=== PATIENT | female | born 1935 | race Caucasian/White ===

== ENCOUNTER → 2022-05-15 | Outpatient (CLI) | payer SELFPAY | END | disposition home or self-care (01) | LOC: LAB SHORT 16:07 | DX: N39.0 Urinary tract infection, site not specified (principal) | CPT/HCPCS: 87077; 87086; 87186 ==

== ENCOUNTER → 2022-09-14 | Outpatient (CLI) | payer OTHER | LOC: LAB 13:50 → LAB SHORT 13:50 | DX: R30.0 Dysuria (principal) | CPT/HCPCS: 87077; 87086; 87186 ==

== ENCOUNTER 2023-01-05 10:10 | Day surgery (SDC) | payer OTHER ==
[~2023-01-05] VITALS: Ht 157.5 cm; Wt 60.5 kg
[2023-01-05] MEDS ORDERED: ELIQUIS2.5 M1 (11:15)
[2023-01-05] MEDS ORDERED: LOSARTAN POTASS25 M2 PO (11:15)
[2023-01-05] MEDS ORDERED: SYNTHROID50 MC1 PO (11:16)
[2023-01-05] MEDS ORDERED: LATANOPROST2.5 M3 (11:16)
[2023-01-05] MEDS ORDERED: METO50ER PO (11:17)
[2023-01-05] MEDS ORDERED: OMEP20ER PO (11:18)
[2023-01-05] MEDS ORDERED: ALLEGRA ALLERG180 MG PO (11:18)
[2023-01-05] MEDS ORDERED: CALCIUM 500 MG1 EAC2 PO (11:19)
--- NOTE | 2023-01-05 11:33 | NUR ---
01/05/23 1133 Perla Tran IN AT 1116 ANTONIO IN AT 1117 CALL LIGHT AT BEDSIDE
[2023-01-05 12:50] VITALS: BP 153/55
--- NOTE | 2023-01-05 12:53 | NUR ---
01/05/23 1253 Krista Snyder IV REMOVED, CANNULA INTACT PT MELBA WELL. IV SITE WNL. PT DENIES NAUSEA AND PAIN
== END 2023-01-05 13:12 | disposition home or self-care (01) ==
LOC: ORSCSDS 10:10
PROVIDERS: Student in an Organized Health Care Education/Training Program
PROC: 08RJ3JZ Replacement of Right Lens with Synthetic Substitute, Percutaneous Approach (ICD-10-PCS; principal; 2023-01-05 11:45)
DX: H25.13 Age-related nuclear cataract, bilateral (principal); I10 Essential (primary) hypertension; H40.9 Unspecified glaucoma; K21.9 Gastro-esophageal reflux disease without esophagitis; I48.91 Unspecified atrial fibrillation; E03.9 Hypothyroidism, unspecified; Z95.0 Presence of cardiac pacemaker; Z79.899 Other long term (current) drug therapy
CPT/HCPCS: J2250; J7040; V2632

== ENCOUNTER 2023-02-02 06:27 | Day surgery (SDC) | payer OTHER ==
[~2023-02-02] VITALS: Ht 157.5 cm; Wt 60.6 kg
[~2023-02-02 06:27] MED LIST: ALLEGRA ALLERG180 MG PO; CALCIUM 500 MG1 EAC2 PO; ELIQUIS2.5 M1; LATANOPROST2.5 M3; LOSARTAN POTASS25 M2 PO; METO50ER PO; OMEP20ER PO; SYNTHROID50 MC1 PO
--- NOTE | 2023-02-02 06:52 | NUR ---
02/02/23 0652 Christiano Veronica CALL LIGHT WITHIN REACH. TETRACAINE IN AT 0650 AND PLEDGETT IN AT 0651 IN THE LEFT EYE
[2023-02-02 07:51] VITALS: BP 144/54
--- NOTE | 2023-02-02 08:01 | NUR ---
02/02/23 0801 CHINA MCGUIRE IV REMOVED WNL. CANNULA INTACT. MELBA WELL
== END 2023-02-02 08:15 | disposition home or self-care (01) ==
LOC: ORSCSDS 06:27
PROVIDERS: Student in an Organized Health Care Education/Training Program
PROC: 08DK3ZZ Extraction of Left Lens, Percutaneous Approach (ICD-10-PCS; principal; 2023-02-02 07:30)
DX: H25.12 Age-related nuclear cataract, left eye (principal); Z96.1 Presence of intraocular lens; I10 Essential (primary) hypertension; K21.9 Gastro-esophageal reflux disease without esophagitis; I48.91 Unspecified atrial fibrillation; E03.9 Hypothyroidism, unspecified; Z79.899 Other long term (current) drug therapy
CPT/HCPCS: A9270; J2001; J2250; J7040; V2632

== ENCOUNTER → 2023-02-22 | Outpatient (CLI) | payer OTHER | END | disposition home or self-care (01) | LOC: LAB 14:54 → LAB SHORT 14:54 | DX: N39.0 Urinary tract infection, site not specified (principal) | CPT/HCPCS: 87086 ==

== ENCOUNTER → 2023-09-01 | Outpatient (CLI) | payer OTHER | END | disposition home or self-care (01) | LOC: LAB 14:54 → LAB SHORT 14:54 | DX: N39.0 Urinary tract infection, site not specified (principal) | CPT/HCPCS: 87077; 87086; 87186 ==

== ENCOUNTER → 2024-08-16 | Outpatient (CLI) | payer OTHER | END | disposition home or self-care (01) | LOC: LAB SHORT 13:12 → LAB 13:12 | DX: N39.0 Urinary tract infection, site not specified (principal) | CPT/HCPCS: 87077; 87086; 87186 ==

== ENCOUNTER → 2024-12-16 | Outpatient (CLI) | payer OTHER | LOC: LAB 10:52 → LAB SHORT 10:52 | DX: N30.01 Acute cystitis with hematuria (principal) | CPT/HCPCS: 87077; 87086; 87186 ==